=== PATIENT | female | born 1960 ===

== ENCOUNTER 2023-11-19 17:27 | Emergency (ER) | payer BC, SELFPAY ==
[2023-11-19] VITALS (17 sets, daily range): BP systolic 116–155; BP diastolic 71–107; PULSE 71–100; RESP 18–19; TEMP 36.8–37.3; O2SAT 91–98; BMI 25.1
--- NOTE | 2023-11-19 19:49 | PC.NURSE ---
Pt brought back from triage to [facility]-asking if she is ok to be in [facility] secondary to full ED. Pt with diff tx c/o of left leg numbness-2 assist. Pt noted to be drinking and eating while in triage to bed palcement.
--- NOTE | 2023-11-19 19:58 | ED.GENADULT ---
HPI - General Adult General Time Seen by Provider: 19:58 Date Seen: 11/19/23 Chief complaint: Fall/Minor Trauma Stated complaint: Numbness Time Seen by Provider: 11/19/23 19:58 Source: patient, RN notes reviewed and old records reviewed Mode of arrival: ambulatory Limitations: no limitations History of Present Illness HPI narrative: 63-year-old female who comes in today with leg weakness, fall. Patient had a fall about 9 days ago, says she landed on her left side. Since then she notes that she had some tingling in her left leg that she says is ?all over? as well as some weakness and difficulty walking. She says the tingling now has become more numbness. She denies head injury, back pain, bowel or bladder incontinence. Related Data Home Medications ?Medication ?Instructions ?Recorded ?Confirmed No Known Home Medications 11/19/23 11/19/23 Allergies Allergy/AdvReac Type Severity Reaction Status Date / Time No Known Drug Allergies Allergy Verified 11/19/23 17:39 PFSH PFS Social History Smoking Status: Current every day smoker What tobacco products do you use: cigarettes Smoking packs per day: 0.25 Smoking cigarettes per day: 5.0 Do you use any of these nicotine containing products: None How often do you have a drink containing alcohol: 4 or more times a week How many standard drinks containing alcohol do you have on a typical day: 3 or 4 AUDIT-C Alcohol total score: 5 Non-prescribed substance use: denies use Exam Narrative: Exam Narrative: General: Well-developed and well-nourished, no acute distress Head: Atraumatic and normocephalic Eyes: Pupils are equal reactive, extraocular motions intact, conjunctiva clear ENT: External nose and ears are normal, posterior pharynx without erythema or exudate Neck: No midline cervical tenderness, full spontaneous range of motion the neck, trachea midline, no adenopathy Heart: Regular rate and rhythm no murmurs or thrills Lungs: Clear to auscultation bilaterally without wheezes or crackles Abdomen: Soft, nontender, nondistended with active bowel sounds Musculoskeletal: No tenderness, deformity, or edema Neurologic: Awake, alert, and oriented x3. Examination of the left leg initially with weakness on straight leg raise from the bed although able to hold the leg up against gravity without difficulty. Additionally, when not being prompted, patient is able to straight leg raise the leg off the bed to past 60? without difficulty. Decreased sensation on the dorsum of the left foot, plantar sensation is intact as is sensation of the rest of the thigh and leg. Weakness with dorsiflexion, plantar flexion is intact. Strength with knee extension is intact, patient says she cannot bend the leg although hold this in about 30? of flexion at the knee when being told to bend. Psych: Mood and affect are appropriate Skin: No rashes Const: Vital Signs, click to edit/add: Vital Signs - 24 hr 11/19/23 17:31 11/19/23 20:06 11/19/23 22:18 Temperature 98.2 F 99.1 F Pulse Rate 91 Pulse Rate [Left P ulse Oximeter] 100 95 Respiratory Rate 18 19 Blood Pressure 135/98 H Blood Pressure [Le ft Upper Arm] 155/96 H 149/107 H Pulse Oximetry 95 98 98 Oxygen Delivery Me thod Room Air Room Air 11/19/23 22:19 11/19/23 22:30 11/19/23 22:32 Temperature Pulse Rate 87 91 94 Pulse Rate [Left P ulse Oximeter] Respiratory Rate Blood Pressure 130/81 Blood Pressure [Le ft Upper Arm] Pulse Oximetry 96 94 97 Oxygen Delivery Me thod Course Course ED Course: Patient seen and examined. Regular tobacco use and regular smoking. Presents today with leg weakness. She notes this been going on for about 9 days, was getting better but then worse in the last day. Exam is inconsistent, this patient spontaneously list leg straight off the bed but a traction is barely able to lift against gravity, can maintain against gravity without difficulty. Knee extension is intact, plantar flexion is intact, hip flexion is intact. No pain with passive flexion, internal and external rotation of the knee, nor flexion at the ankle or hip. The only consistent finding no neurologic exam is foot drop, patient may have a peroneal nerve injury but given inconsistent exam and poor historian, CT scan of the head and lumbar spine will be performed as well. Reevaluation(s) Time of Reevaluation #1: 22:10 Reevaluation #1: CT scan of the head in a bili interpreted by me demonstrates a 2 cm area of intraparenchymal hemorrhage in the right frontoparietal lobe with some surrounding vasogenic edema. Updated patient and family with findings. Plan to transfer for neurosurgical evaluation. Patient noted to have increased repetitive questioning from earlier but no other new focal neurologic deficits. Time of Reevaluation #2: 22:31 Reevaluation #2: Care discussed with Dr. Anderson, radiology who confirms diagnosis of intracranial hemorrhage likely with underlying mass lesion concerning for metastatic disease. Also abdominal aortic aneurysm. Care was discussed with Dr. Gao, neuro test and research reactor operator at [facility] who accepts patient for transfer, recommends Keppra but no Decadron for now Time of Reevaluation #3: 22:43 Reevaluation #3: Labs independently interpreted by me with urinalysis with a positive nitrites, 5-10 white cells, moderate bacteria with, Rocephin IV is given. Sodium is normal. Vital Signs Vital signs: Initial Vital Signs Temperature 98.2 F 11/19/23 17:31 Temperature Source Temporal Artery Scan 11/19/23 17:31 Pulse Rate 100 11/19/23 17:31 Pulse Rhythm Regular 11/19/23 17:31 Pulse Strength 3+ Normal 11/19/23 17:31 Respiratory Rate 18 11/19/23 17:31 Blood Pressure 155/96 H 11/19/23 17:31 Blood Pressure Mean 115 H 11/19/23 17:31 Blood Pressure Position Sitting 11/19/23 17:31 Pulse Oximetry 95 11/19/23 17:31 Oxygen Delivery Method Room Air 11/19/23 17:31 Vital Signs Temperature 98.2 F 11/19/23 17:31 Pulse Rate 100 11/19/23 17:31 Respiratory Rate 18 11/19/23 17:31 Blood Pressure 155/96 H 11/19/23 17:31 Pulse Oximetry 95 11/19/23 17:31 Oxygen Delivery Method Room Air 11/19/23 17:31 Temperature 99.1 F 11/19/23 20:06 Pulse Rate 94 11/19/23 22:32 Respiratory Rate 19 11/19/23 20:06 Blood Pressure 130/81 11/19/23 22:32 Pulse Oximetry 97 11/19/23 22:32 Oxygen Delivery Method Room Air 11/19/23 20:06 Medications Administered Medications: Generic Name Dose Route Start Last Admin Trade Name Freq PRN Reason Stop Dose Admin Levetiracetam 500 mg/ Sodium 105 mls @ 420 mls/hr 11/19/23 22:23 11/19/23 23:24 Chloride IVPB 11/19/23 22:24 Infused ONCE ONE Infusion Ceftriaxone Sodium 1 gm/ 100 mls @ 200 mls/hr 11/19/23 22:33 11/19/23 23:20 Sodium Chloride IVPB 11/19/23 22:34 200 mls/hr ONCE ONE Administration Medical Decision Making Lab Data Labs: Lab Results 11/19/23 11/19/23 Range/Units 20:43 22:12 WBC 9.85 (4.50-11.00) K/uL RBC 4.25 (4.00-5.20) m/uL Hgb 14.2 (12.0-16.0) gm/dL Hct 42.5 (33.0-51.0) % MCV 100 (80-100) fL MCH 33 (26-34) pg MCHC 33 (32-36) gm/dL RDW Coeff of [place] 13.4 (11.5-15.5) % Plt Count 258 (140-440) K/uL Neut % (Auto) 70.3 (42.0-72.0) % Lymph % (Auto) 16.2 L (20-44) % [place] % (Auto) 11.7 H (0.0-11.0) % Eos % (Auto) 1.3 (0.0-7.0) % Baso % (Auto) 0.3 (0.0-3.0) % Neut # (Auto) 6.92 (1.7-7.0) K/uL Lymph # (Auto) 1.60 (0.90-2.90) K/uL [place] # (Auto) 1.20 H (0.00-0.90) K/UL Eos # (Auto) 0.13 (0.00-0.50) K/uL Baso # (Auto) 0.03 (0.00-0.30) K/uL Abs Immat Gran (auto) 0.02 (0.00-0.30) K/uL Imm/Tot Granulo (auto) 0.2 % INR 0.90 L (0.91-1.10) Sodium 136 (135-149) mmol/L Potassium 3.3 L (3.6-5.1) mmol/L Chloride 105 (96-114) mmol/L Carbon Dioxide 26 (20-32) mmol/L Anion Gap 5 L (7-15) mEq/L BUN 6 L (7-30) mg/dL Creatinine 0.6 (0.5-1.5) mg/dL Estimated Creat Clear 56.00 Estimated GFR 101 ml/min Glucose 103 (60-115) mg/dL Calcium 9.5 (8.4-10.6) mg/dL Urine Color Yellow (Yellow) Urine Appearance Clear (Clear) Urine pH 6.5 (5.0-8.5) Ur Specific [place] 1.010 (1.000-1.030) Urine Protein Negative (Negative) Urine Glucose (UA) Negative (Negative) Urine Ketones Trace A (Negative) Urine Blood Trace-intact A (Negative) Urine Nitrite Positive A (Negative) Urine Bilirubin Negative (Negative) Urine Urobilinogen 0.2 (0.2-1.0) Ur Leukocyte Esterase Trace A (Negative) Urine RBC 2-5 A (0-2) Urine WBC 5-10 A (0-5) Ur Squamous Epith Cells Few (None-Few) Urine Bacteria Moderate A (None) Urine Opiates Screen Negative (Negative) Ur Oxycodone Screen Negative (Negative) Urine Methadone Screen Negative (Negative) Ur Barbiturates Screen Negative (Negative) U Tricyclic Antidepress Negative (Negative) Ur Phencyclidine Scrn Negative (Negative) Ur Amphetamines Screen Negative (Negative) U Methamphetamines Scrn Negative (Negative) U Benzodiazepines Scrn Negative (Negative) Urine Cocaine Screen Negative (Negative) U Marijuana (THC) Screen POSITIVE A (Negative) Ur Drug Screen Comment See Note Critical Care Time Critical Care Time Critical Care Time: Yes (Intracranial hemorrhage) Attestation: The patient required my highest level preparedness to intervene emergently and I personally spent this critical care time directly and personally managing the patient. This critical care time included: Obtaining a history; Examining the patient; Pulse oximetry; Ordering and reviewing of studies; Arranging urgent treatment with development of a management plan; Evaluation of patients response to treatment; Frequent reassessment discussions with other providers. This critical care time was performed to assess and manage the high probability of imminent life-threatening deterioration that could result in multiorgan failure. It was exclusive of separate billable procedures and treating other patients and teaching time. Total Critical Care Time in Minutes: 150 Discharge Plan Discharge Clinical Impression: Foot drop, left, Intraparenchymal hemorrhage of brain, Acute urinary tract infection Patient Disposition: [facility] Condition: Stable Additional Instructions: Wear walking boot and use crutches as needed although you may bear weight on the foot Follow-up with your primary care provider for further evaluation and treatment including possible physical therapy Activity Level: Activity as Tolerated and Wear Brace Discharge Diet: Regular Prescriptions: No Action No Known Home Medications Stand Alone Forms: MyHealth Info Instructions
--- NOTE | 2023-11-19 20:21 | CRLHL7_ITS ---
For Patients: As a result of the Century Cures Act, medical imaging exams and procedure reports are released immediately into your electronic medical record. You may view this report before your referring provider. If you have questions, please contact your health care provider. Indication: Fall, left leg weakness and paresthesias. Technique: Noncontrast CT of the lumbar spine with multiplanar reconstruction utilizing bone and soft tissue algorithms. Comparison: None available. Findings: No acute fracture or traumatic subluxation. No lytic or blastic lesion. Grade 1 3 mm anterolisthesis at L3-L4. Partially imaged infrarenal abdominal aortic aneurysm measuring up to 4.6 cm in diameter. Cholelithiasis. Masslike enlargement of the left adrenal gland measuring up to 5.1 cm. T12-L1 and L1-L2: No significant spinal canal or neural foraminal stenosis. L2-L3: Symmetric disc bulge. Moderate facet joint hypertrophy. Mild spinal canal stenosis. No significant neural foraminal narrowing. L3-L4: Anteriorly projecting right facet joint synovial cyst impressing upon the dorsal thecal sac. Moderate facet joint hypertrophy with anterolisthesis and disc uncovering. Moderate spinal canal stenosis. No significant neural foraminal narrowing. L4-L5: Symmetric disc bulge. Moderate facet joint hypertrophy. No significant spinal canal or neural foraminal stenosis. L5-S1: Symmetric disc bulge. Moderate facet joint hypertrophy. No significant spinal canal or neural foraminal stenosis. Impression: 1. No acute fracture or traumatic subluxation. 2. Masslike enlargement of the left adrenal gland measuring up to 5.1 cm. In the context of intracranial hemorrhagic lesions, findings raise the concern for metastasis. 3. Incidentally noted partially imaged infrarenal abdominal aortic aneurysm. 4. No lytic or blastic lesion. 5. At L2-L3, mild spinal canal stenosis. 6. At L3-L4, grade 1 anterolisthesis, anteriorly projecting right facet joint synovial cyst impressing upon the dorsal thecal sac, and moderate resultant spinal canal stenosis. Please note that all CT scans at this facility use dose modulation, iterative reconstruction, and/or weight-based dosing when appropriate to reduce radiation dose to as low as reasonably achievable. Dictated by Juan Anderson MD @ 11/19/2023 10:35:33 PM (Electronically Signed)
--- NOTE | 2023-11-19 20:21 | CRLHL7_ITS ---
For Patients: As a result of the Century Cures Act, medical imaging exams and procedure reports are released immediately into your electronic medical record. You may view this report before your referring provider. If you have questions, please contact your health care provider. Indication: Fall, left leg weakness, paresthesias. Technique: Noncontrast CT of the head with multiplanar reconstruction utilizing bone and soft tissue algorithms. Comparison: None available. Findings: A focus of hemorrhage at the beebe-white matter interface in the right superior frontal lobe with prominent surrounding edema measures 2.4 x 1.9 x 2.4 cm (series 2, image 44). In addition, a smaller hemorrhagic foci are noted within right anterior frontal lobe measuring 5 mm (series 2, image 40) and in the left parietal lobe measures 8 mm (series 2, image 40). The ventricles are normal in size. There is no evidence of ventricular obstruction. A 14 millimeter lucent lesion is noted within anterior midline parietal calvarium (series 7, image 40). Impression: 1. Multiple hemorrhagic lesions with distribution predominantly at the beebe-white matter interface, including a dominant lesion in the right superior frontal lobe measuring up to 2.4 cm with prominent surrounding edema. 2. Above findings are suspicious for intracranial metastasis and further characterization with contrast-enhanced MRI is recommended. 3. 14 mm lucent lesion within the anterior midline parietal calvarium also suspicious for metastasis. Findings were discussed with Dr. Dao 11/19/2023 at 10:26 p.m.. Please note that all CT scans at this facility use dose modulation, iterative reconstruction, and/or weight-based dosing when appropriate to reduce radiation dose to as low as reasonably achievable. Dictated by Juan Anderson MD @ 11/19/2023 10:26:56 PM (Electronically Signed)
--- NOTE | 2023-11-19 21:01 | PC.NURSE ---
Pt up to [facility] with gait belt. Very weak and difficult transfer with 2 people. Note multiple bruising in various areas when undressed. Has bilateral bandages on knees. Pt says she thought she was getting better and thata is why she did not come in earlier.
[2023-11-19 21:06] LABS: Appearance Urine Clear (Clear); Bilirubin Urine Negative (Negative); Blood Urine Trace-intact (Negative); Color Urine Yellow (Yellow); Glucose Urine Negative (Negative); Ketones Urine Trace (Negative); Leukocyte Esterase Urine Trace (Negative); Nitrite Urine Positive (Negative); Protein Urine Negative (Negative); Urobilinogen Urine 0.2 (0.2-1.0); pH Urine 6.5 (5.0-8.5)
[2023-11-19 21:12] LABS: Amphetamine Screen Urine Negative (Negative); Barbiturate Screen Urine Negative (Negative); Benzodiazepines Screen Urine Negative (Negative); Cannabinoid Screen Urine POSITIVE (Negative); Cocaine Screen Urine Negative (Negative); Methadone Screen Urine Negative (Negative); Methamphetamines Screen Urine Negative (Negative); Opiate Screen Urine Negative (Negative); Oxycodone Screen Urine Negative (Negative); Phencyclidine Screen Urine Negative (Negative); Tricyclic Antidepressant Urine Negative (Negative)
[2023-11-19 21:21] LABS: Bacteria Urine Moderate; Squamous Epithelial Cell Urine Few (None-Few)
--- NOTE | 2023-11-19 21:40 | PC.NURSE ---
Pt to CT
--- NOTE | 2023-11-19 22:10 | PC.NURSE ---
at [facility]-pt has a head bleed. Orders as noted to line and lab
[2023-11-19 22:36] LABS: Chloride* 105 mmol/L (96-114); Potassium* 3.3 mmol/L (3.6-5.1); Sodium* 136 mmol/L (135-149)
[2023-11-19 22:39] LABS: Anion Gap 5 mEq/L (7-15); Blood Urea Nitrogen* 6 mg/dL (7-30); Carbon Dioxide* 26 mmol/L (20-32); Creatinine* 0.6 mg/dL (0.5-1.5); Estimated Glomerular Filt Rate 101 ml/min; Glucose* 103 mg/dL (60-115); Prothrombin Time 12.7 Seconds
[2023-11-19 22:40] LABS: Calcium* 9.5 mg/dL (8.4-10.6)
[2023-11-19 22:47] LABS: Basophils Absolute Auto 0.03 K/uL (0.00-0.30); Basophils Percent Auto 0.3 % (0.0-3.0); Eosinophils Absolute Auto 0.13 K/uL (0.00-0.50); Eosinophils Percent Auto 1.3 % (0.0-7.0); Hematocrit 42.5 % (33.0-51.0); Hemoglobin* 14.2 gm/dL (12.0-16.0); Immature Granulocytes Abs Auto 0.02 K/uL (0.00-0.30); Immature Granulocytes Pct Auto 0.2 %; Lymphocytes Percent Auto 16.2 % (20-44); Mean Corpuscular HGB Conc 33 gm/dL (32-36); Mean Corpuscular Hemoglobin 33 pg (26-34); Mean Corpuscular Volume 100 fL (80-100); Monocytes Percent Auto 11.7 % (0.0-11.0); Neutrophils Absolute Auto 6.92 K/uL (1.7-7.0); Neutrophils Percent Auto 70.3 % (42.0-72.0); Platelet Count* 258 K/uL (140-440); RDW Coefficient of Variation % 13.4 % (11.5-15.5); Red Blood Count 4.25 m/uL (4.00-5.20); White Blood Count* 9.85 K/uL (4.50-11.00)
[2023-11-19 22:51] LABS: Slide Review Reflex No
[2023-11-19] MEDS: cefTRIAXone 1 GM in 0.9 % SODIUM CHLORIDE Mini-bag 100 ML IVPB (23:20)
[2023-11-20] VITALS: PULSE 68; O2SAT 94
[2023-11-20 00:02] VITALS: BP 126/84; PULSE 68; O2SAT 94
--- NOTE | 2023-11-20 00:38 | PC.NURSE ---
Report has been called and pt status updated, Pt leaving code 3 for [facility], VSS. Pt belongings sent with.
== END 2023-11-20 00:38 | disposition home or self-care (01) ==
PROVIDERS: Emergency Provider Family Medicine; PCP Family Medicine
DX: M21.372 Foot drop, left foot (principal); N39.0 Urinary tract infection, site not specified; I61.2 Nontraumatic intracerebral hemorrhage in hemisphere, unspecified
CPT/HCPCS: 36415; 70450; 72131; 80048; 80306; 81001; 85025; 85610; 87086; 87186; 96365; 96375; 99285; 99291; 99292; J0696; J1953

== ENCOUNTER 2023-11-20 00:34 | Outpatient (CLI) | payer BC, SELFPAY | END 2023-11-20 00:35 | disposition home or self-care (01) | LOC: AMB 11-26 16:47 | PROVIDERS: PCP Family Medicine; Visit Provider Family Medicine | DX: I61.9 Nontraumatic intracerebral hemorrhage, unspecified (principal); N39.0 Urinary tract infection, site not specified; M21.372 Foot drop, left foot | CPT/HCPCS: A0425; A0427 ==